=== PATIENT | female | born 1975 | race Caucasian/White ===

== ENCOUNTER 2018-03-13 15:47 | Outpatient (REF) | payer MEDICAID, SELFPAY ==
--- NOTE | 2018-03-13 15:15 | PAPFT_PTH ---
PATIENT: Christa Clifford [facility] U#:[id number] AGE/SX: 42/F ROOM: RE03/13/[address]: Rivka Jhaveri : 1975 BED: DIS: 03/13/2018 SPEC #: [id number] RECD: 03/14/18 12:51 STATUS: EROS MILLER #: [id number] CRISTIN: 03/13/18 15:[address]: Rivka Jhaveri DEPT: [facility] Cytology RECD BY: Latisha Mendoza Tissues: 1 - CX/ENDOCX FOR PAP SMEARS Procedures: PAP THIN PREP/UVM Screening HPV DNA PROBE Comments: [id number]
[2018-03-13 21:30] LABS: Abs Immature Grans 0.02 k/cumm (0.0-0.09); Absolute Basophil Count 0.02 k/cumm (0.0-0.2); Absolute Eosinophil Count 0.17 k/cumm (0.0-0.7); Absolute Lymphocyte Count 2.29 k/cumm (1.2-3.4); Absolute Neutrophil Count 6.21 k/cumm (1.2-6.7); Basophils % 0.2; Eosinophils % 1.8; HCT 36.9 % (36.0-46.0); HGB 11.9 g/dL (12.0-15.5); Immature Grans % 0.2; Lymphocytes % 24.6; Mean Corp. HGB Concentration 32.2 g/dL (32.0-36.0); Mean Corpuscular Hemoglobin 31.1 pg (27.0-33.0); Mean Corpuscular Volume 96.3 fL (80-95); Mean Platelet Volume 11.2 fL (8.0-11.0); Monocytes % 6.4; Neutrophils % 66.8; Platelet Count 337 x1000/uL (130-400); RBC 3.83 m/cumm (4.00-5.20); RBC Distribution Width 14.7 % (11.7-14.6); White Blood Cell Count 9.31 k/cumm (4.4-10.8)
[2018-03-13 22:01] LABS: Iron 39 ug/dL (50-175); Total Iron Binding Capacity 314 ug/dL (250-450); Transferrin Sat 12 % (15-50)
[2018-03-13 22:19] LABS: Cholesterol 196 mg/dL (50-200); Ferritin 12 ng/mL (8-388); Glucose 89 mg/dL (70-100); HDL Cholesterol 90 mg/dL (40-60); LDL CHOLESTEROL 81 mg/dL (<100); TSH (W/Ref FT4) 1.67 uIU/mL (0.358-3.74); Triglyceride 81 mg/dL (30-150)
== END 2018-03-13 16:07 ==
LOC: NCHCN 15:47
PROVIDERS: PCP Nurse Practitioner Family; Visit Provider Nurse Practitioner Family
DX: R53.83 Other fatigue (principal); K30 Functional dyspepsia; R91.1 Solitary pulmonary nodule; R10.2 Pelvic and perineal pain; N39.3 Stress incontinence (female) (male); E66.9 Obesity, unspecified; Z00.00 Encounter for general adult medical examination without abnormal findings; Z12.4 Encounter for screening for malignant neoplasm of cervix; Z11.51 Encounter for screening for human papillomavirus (HPV)
CPT/HCPCS: 80061; 82947; 83721; 88142; 82728; 83540; 83550; 84443; 85025; 87624

== ENCOUNTER 2018-03-19 01:41 | Outpatient (CLI) | payer MEDICAID, SELFPAY ==
--- NOTE | 2018-03-19 11:55 | DI.MAMMO_ITS ---
SYMPTOM/DIAGNOSIS: SCREENING, Z12.39, FAMILY H/O BREAST CA MAMMOGRAMS: Mammograms were interpreted according to the usual protocol including computer analysis with CAD system, tomosynthesis and C view imaging. Comparison is made with 2017. The breasts are composed of heterogeneously dense fibroglandular tissue, breast density, Category C. No suspicious masses or suspicious microcalcifications are seen. There has been no significant change. IMPRESSION: Category 1C, negative mammogram. Yearly screening mammography is recommended. [facility] ASSESSMENT OF FINDINGS: Negative. Category 1. Patient will receive a letter notifying them of these results. Bi-RADS category C. The breasts are heterogeneously dense, which may obscure small masses.
== END 2018-03-19 02:01 ==
PROVIDERS: PCP Nurse Practitioner Family; Visit Provider Nurse Practitioner Family
DX: Z12.31 Encounter for screening mammogram for malignant neoplasm of breast (principal); Z80.3 Family history of malignant neoplasm of breast
CPT/HCPCS: 77063; 77067

== ENCOUNTER 2018-06-08 09:12 | Outpatient (REF) | payer MEDICAID, SELFPAY ==
[2018-06-08 13:21] LABS: HCT 40.3 % (36.0-46.0); HGB 12.9 g/dL (12.0-15.5); Mean Corpuscular Hemoglobin 30.7 pg (27.0-33.0); Mean Platelet Volume 11.4 fL (8.0-11.0); Platelet Count 316 x1000/uL (130-400); RBC Distribution Width 14.4 % (11.7-14.6); White Blood Cell Count 8.25 k/cumm (4.4-10.8)
[2018-06-08 13:32] LABS: Iron 104 ug/dL (50-175)
== END 2018-06-08 09:32 ==
LOC: NCHCN 09:12
PROVIDERS: PCP Nurse Practitioner Family; Visit Provider Nurse Practitioner Family
DX: D50.9 Iron deficiency anemia, unspecified (principal)
CPT/HCPCS: 85027; 83540

== ENCOUNTER 2018-09-10 14:25 | Outpatient (REF) | payer MEDICAID, SELFPAY ==
[2018-09-10 21:50] LABS: Abs Immature Grans 0.02 k/cumm (0.0-0.09); Absolute Basophil Count 0.04 k/cumm (0.0-0.2); Absolute Eosinophil Count 0.05 k/cumm (0.0-0.7); Absolute Lymphocyte Count 1.95 k/cumm (1.2-3.4); Absolute Monocyte Count 0.47 k/cumm (0.11-0.7); Absolute Neutrophil Count 2.61 k/cumm (1.2-6.7); Basophils % 0.8; HGB 13.6 g/dL (12.0-15.5); Immature Grans % 0.4; Lymphocytes % 37.9; Mean Corp. HGB Concentration 33.2 g/dL (32.0-36.0); Mean Corpuscular Hemoglobin 30.7 pg (27.0-33.0); Mean Corpuscular Volume 92.6 fL (80-95); Mean Platelet Volume 11.5 fL (8.0-11.0); Monocytes % 9.1; Neutrophils % 50.8; Platelet Count 210 x1000/uL (130-400); RBC 4.43 m/cumm (4.00-5.20); RBC Distribution Width 14.7 % (11.7-14.6); White Blood Cell Count 5.14 k/cumm (4.4-10.8)
[2018-09-10 22:35] LABS: ALT 281 U/L (12-78); AST 200 U/L (15-37); Albumin 3.5 g/dL (3.4-5.0); Alkaline Phosphatase 535 U/L (46-116); Anion Gap 8.7 mmol/L (3-11); BUN 6 mg/dL (7-18); Bilirubin, Total 0.4 mg/dL (0.2-1.0); CO2 26.3 mmol/L (21.0-32.0); Calcium 8.4 mg/dL (8.5-10.1); Chloride 107 mmol/L (98-107); Glucose 103 mg/dL (70-100); Potassium 4.1 mmol/L (3.5-5.1); Sodium 142 mmol/L (136-145); TSH (W/Ref FT4) 2.16 uIU/mL (0.358-3.74); Total Protein 6.9 g/dL (6.4-8.2)
[2018-09-12 10:52] LABS: Hepatitis A Antibody IgM Negative (NEGAT); Hepatitis B Core Antibody Negative (NEGAT); Hepatitis B surface Ag Negative (NEGAT); Hepatitis C Ab w Rflx HCV PCR Negative (NEGAT)
[2018-09-12 12:25] LABS: Lyme Ab w Rflx to Lyme Confirm Negative
[2018-09-13 16:12] LABS: Anaplasma phagocytophilum Negative (Negative); B. miyamotoi PCR Negative (Negative); Babesia divergens/MO-1 Negative (Negative); Babesia duncani Negative (Negative); Babesia microti Negative (Negative); Ehrlichia chaffeensis Negative (Negative); Ehrlichia ewingii/canis Negative (Negative); Ehrlichia muris eauclairensis Negative (Negative)
== END 2018-09-10 14:45 ==
LOC: NCHCN 14:25
PROVIDERS: PCP Nurse Practitioner Family; Visit Provider Nurse Practitioner Family
DX: R50.9 Fever, unspecified (principal); R74.0 Nonspecific elevation of levels of transaminase and lactic acid dehydrogenase [LDH]; D72.819 Decreased white blood cell count, unspecified; R51 Headache; Z11.59 Encounter for screening for other viral diseases
CPT/HCPCS: 80053; 86704; 86709; 86803; 87340; 87798; 84443; 85025; 86618

== ENCOUNTER 2018-10-03 08:23 | Outpatient (REF) | payer MEDICAID, SELFPAY ==
[2018-10-03 12:35] LABS: Abs Immature Grans 0.02 k/cumm (0.0-0.09); Absolute Basophil Count 0.02 k/cumm (0.0-0.2); Absolute Eosinophil Count 0.14 k/cumm (0.0-0.7); Absolute Lymphocyte Count 2.82 k/cumm (1.2-3.4); Absolute Neutrophil Count 2.78 k/cumm (1.2-6.7); Basophils % 0.3; Eosinophils % 2.3; HCT 39.6 % (36.0-46.0); HGB 12.8 g/dL (12.0-15.5); Immature Grans % 0.3; Lymphocytes % 45.6; Mean Corp. HGB Concentration 32.3 g/dL (32.0-36.0); Mean Corpuscular Hemoglobin 30.5 pg (27.0-33.0); Mean Corpuscular Volume 94.5 fL (80-95); Mean Platelet Volume 11.7 fL (8.0-11.0); Monocytes % 6.5; Platelet Count 254 x1000/uL (130-400); RBC 4.19 m/cumm (4.00-5.20); RBC Distribution Width 15.3 % (11.7-14.6); White Blood Cell Count 6.18 k/cumm (4.4-10.8)
[2018-10-03 12:53] LABS: ALT 29 U/L (12-78); AST 14 U/L (15-37); Albumin 3.3 g/dL (3.4-5.0); Alkaline Phosphatase 97 U/L (46-116); Anion Gap 8.4 mmol/L (3-11); BUN 17 mg/dL (7-18); Bilirubin, Total 0.3 mg/dL (0.2-1.0); CO2 25.6 mmol/L (21.0-32.0); CREATININE 0.82 mg/dL (0.55-1.02); Calcium 8.7 mg/dL (8.5-10.1); Chloride 106 mmol/L (98-107); Glucose 90 mg/dL (70-100); Potassium 4.3 mmol/L (3.5-5.1); Sodium 140 mmol/L (136-145); Total Protein 6.7 g/dL (6.4-8.2)
== END 2018-10-03 08:43 ==
LOC: NCHCN 08:23
PROVIDERS: PCP Nurse Practitioner Family; Visit Provider Nurse Practitioner Family
DX: D72.819 Decreased white blood cell count, unspecified (principal); R51 Headache; R74.0 Nonspecific elevation of levels of transaminase and lactic acid dehydrogenase [LDH]
CPT/HCPCS: 80053; 85025

== ENCOUNTER 2019-03-11 17:23 | Outpatient (REF) | payer MEDICAID, SELFPAY ==
[2019-03-11 21:14] LABS: Abs Immature Grans 0.02 k/cumm (0.0-0.09); Absolute Basophil Count 0.03 k/cumm (0.0-0.2); Absolute Eosinophil Count 0.21 k/cumm (0.0-0.7); Absolute Lymphocyte Count 2.17 k/cumm (1.2-3.4); Absolute Monocyte Count 0.56 k/cumm (0.11-0.7); Absolute Neutrophil Count 4.49 k/cumm (1.2-6.7); Basophils % 0.4; Eosinophils % 2.8; HCT 37.6 % (36.0-46.0); Immature Grans % 0.3 %; Mean Corp. HGB Concentration 31.9 g/dL (32.0-36.0); Mean Corpuscular Hemoglobin 30.5 pg (27.0-33.0); Mean Corpuscular Volume 95.4 fL (80-95); Mean Platelet Volume 10.8 fL (8.0-11.0); Monocytes % 7.5; Platelet Count 396 x1000/uL (130-400); RBC 3.94 m/cumm (4.00-5.20); RBC Distribution Width 14.6 % (11.7-14.6); White Blood Cell Count 7.48 k/cumm (4.4-10.8)
[2019-03-11 21:29] LABS: Iron 41 ug/dL (50-170); Total Iron Binding Capacity 284 ug/dL (250-450); Transferrin Sat 14 % (15-50)
[2019-03-11 22:10] LABS: ALT 30 U/L (14-59); AST 20 U/L (15-37); Albumin 3.8 g/dL (3.4-5.0); Alkaline Phosphatase 99 U/L (46-116); Anion Gap 11.1 mmol/L (3-11); BUN 15 mg/dL (7-18); Bilirubin, Total 0.2 mg/dL (0.2-1.0); CO2 27.9 mmol/L (21.0-32.0); Calcium 8.9 mg/dL (8.5-10.1); Chloride 103 mmol/L (98-107); Glucose 91 mg/dL (74-106); Magnesium 1.9 mg/dL (1.8-2.4); Potassium 3.8 mmol/L (3.5-5.1); Sodium 142 mmol/L (136-145); TSH (W/Ref FT4) 3.05 uIU/mL (0.36-3.74); Total Protein 7.3 g/dL (6.4-8.2); Vitamin B12 335 pg/mL (193-986)
[2019-03-12 14:46] LABS: Hemoglobin A1C 5.6 % (3.8-5.6)
== END 2019-03-11 17:43 ==
LOC: NCHCN 17:23
PROVIDERS: PCP Nurse Practitioner Family; Visit Provider Nurse Practitioner Family
DX: R53.83 Other fatigue (principal); R63.5 Abnormal weight gain; R07.89 Other chest pain; M79.672 Pain in left foot
CPT/HCPCS: 80053; 82607; 83036; 83540; 83550; 83735; 84443; 85025

== ENCOUNTER 2019-09-13 08:17 | Outpatient (CLI) | payer MEDICAID, SELFPAY ==
[2019-09-19 19:12] LABS: SARS-CoV-2 RNA Undetected (Undetected); SARS-CoV-2 Specimen Source Nasopharynx
== END 2019-09-13 08:37 ==
PROVIDERS: PCP Nurse Practitioner Family; Visit Provider Nurse Practitioner Family
DX: Z20.828 Contact with and (suspected) exposure to other viral communicable diseases (principal)
CPT/HCPCS: U0003

== ENCOUNTER 2020-03-16 09:19 | Outpatient (CLI) | payer MEDICAID, SELFPAY ==
[2020-03-17 23:32] LABS: COVID-19 RT-PCR Result Positive (Negative)
== END 2020-03-16 09:39 ==
PROVIDERS: PCP Nurse Practitioner Family; Visit Provider Nurse Practitioner Family
DX: J06.9 Acute upper respiratory infection, unspecified (principal); Z20.822 Contact with and (suspected) exposure to COVID-19; R09.81 Nasal congestion
CPT/HCPCS: U0003

== ENCOUNTER 2020-07-16 01:21 | Outpatient (CLI) | payer MEDICAID, SELFPAY ==
--- NOTE | 2020-07-16 | DI.CT_ITS ---
Exam(s) CT CHEST WO EXAM: CT CHEST WO CLINICAL HISTORY: F/U PULMONARY NODULE, R91.1. TECHNIQUE: Multi planar reconstructions were performed. CONTRAST MATERIAL: None FINDINGS: CHEST: LUNGS: The previously described 4-5 millimeter ground-glass noncalcified nodule in the right upper lo be is unchanged from 2017 and therefore likely benign. There are no new focal right lung findings no r pleural effusion. Also no new significant findings in the left lung lower lobe. Mild benign-appea ring increased markings are noted in the inferior lingular segment of the left lung which were not ev ident 2017. No pleural effusions on either side. No significant focal findings in trachea and mainstem bronchi. MEDIASTINUM: There is no obvious hilar nor mediastinal adenopathy. Visualized thyroid unremarkable.No obvious axillary adenopathy CARDIAC: Heart size is normal. There is no pericardial effusion.Caliber of the thoracic aorta is wit hin normal limits. VISUALIZED UPPER ABDOMEN: There is a small cyst in the lateral aspect of the right hepatic lobe which measures 8 millimeters and is unchanged from 2017. No additional focal liver findings. Gallbladder is again noted be surgically absent. There are no adrenal masses. No splenomegaly. OSSEOUS: No significant osseous lesions.. IMPRESSION: 1. Continued stable appearance of the solitary 4-5 millimeter ground-glass nodule in the right upper lobe. This is unchanged from least 2017 and therefore likely benign. 2. Benign-appearing increased markings in the inferior lingular segment of the left lung are noted, n ot previously present. 3. No pleural effusions nor obvious intrathoracic adenopathy RADIATION DOSE DELIVERED: 686.4mGy.cm Total DLP DATA REPOSITORY: All CT scans at this facility are submitted to the National Radiology Data Registry (NRDR) Dose Index Registry (DIR) with the [employer] (ACR). RADIATION OPTIMIZATION: All CT scans at this facility use at least one of these dose optimization te chniques: automated exposure control; mA and/or kV adjustment per patient size (includes targeted exa ms where dose is matched to clinical indication); or iterative reconstruction.
--- NOTE | 2020-07-16 08:20 | DI.MAMMO_ITS ---
Exam(s) MAMMO SCREENING EXAM: MAMMO SCREENING CLINICAL HISTORY: SCREENING, Z12.39,FAMILY H/O BREAST CA,Z80.3. TECHNIQUE: Bilateral full field digital CC and MLO mammographic images were obtained with 3D tomosyn thesis and utilizing computer aided detection (CAD). COMPARISON: Prior mammograms dating back to 2016, the most recent being March 2018. FINDINGS: Fibroglandular tissue is moderately dense, this decreasing the sensitivity of the mammogram for findi ng in underlying lesions. There are no new spiculated masses nor malignant appearing microcalcification groups. Asymmetric densities posteriorly right breast up again suggest wall are unchanged. There is no significant architectural distortion nor skin thickening-retraction. IMPRESSION: Stable benign-appearing findings. No radiographic evidence of malignancy. BI-RADS Category 2 - Benign Findings Breast Density - Category C - Heterogeneously dense Breast density Category C or D implies that the patient has dense breast tissue. Dense breast tissue can make it harder to find cancer on a mammogram. Dense breast tissue is also associated with an incr eased risk of breast cancer. This information about the result of the mammogram report was provided to the patient to raise their awareness. Use this report when you speak with the patient about their risks for breast cancer, which includes their family history. At that time, you may recommend additional screening tests (Ultrasoun d or MRI) as these tests may add significant information. A negative radiographic report should not delay biopsy if a dominant or clinically suspicious mass is present. Up to ten percent of cancers are not identified on mammography. A negative report may reinforce clinical impression. Adenosis and dense breasts may obscure an underlying neoplasm. False positive reports average 6 to 10%. Patient will receive a letter notifying them of these results.
== END 2020-07-16 01:41 ==
PROVIDERS: PCP Nurse Practitioner Family; Visit Provider Nurse Practitioner Family
DX: Z12.31 Encounter for screening mammogram for malignant neoplasm of breast (principal); Z80.3 Family history of malignant neoplasm of breast; R91.1 Solitary pulmonary nodule; J98.4 Other disorders of lung
CPT/HCPCS: 71250; 77063; 77067

== ENCOUNTER 2020-07-28 16:50 | Outpatient (REF) | payer MEDICAID, SELFPAY ==
[2020-07-28 20:49] LABS: Iron 64 ug/dL (50-170); Total Iron Binding Capacity 303 ug/dL (250-450); Transferrin Sat 21 % (15-50)
[2020-07-28 20:50] LABS: Abs Immature Grans 0.02 10^3/uL (0.0-0.06); Absolute Basophil Count 0.03 10^3/uL (0.0-0.2); Absolute Monocyte Count 0.62 10^3/uL (0.1-0.8); Absolute Neutrophil Count 5.65 10^3/uL (1.2-6.7); Basophils % 0.4; Eosinophils % 1.2; HCT 34.8 % (36.0-46.0); HGB 12.4 g/dL (11.2-15.7); Immature Grans % 0.2; Lymphocytes % 23.8; MCH 34.6 pg (27.0-33.0); MCHC 35.6 % (32.0-36.0); MCV 97.2 fL (80-95); Monocytes % 7.4; Nucleated RBC 0 %; Platelet Count 239 10^3/uL (130-400); RBC 3.58 10^6/uL (3.93-5.22); RDW 17.1 % (11.7-14.6); RDW-SD 51.3 fL; WBC 8.42 10^3/uL (4.4-10.8)
[2020-07-28 21:09] LABS: Hemoglobin A1C 5.4 % (<5.7)
[2020-07-28 21:22] LABS: ALT 26 U/L (14-59); AST 18 U/L (15-37); Albumin 3.9 g/dL (3.4-5.0); Alkaline Phosphatase 100 U/L (46-116); Anion Gap 8.5 mmol/L (3-11); BUN 11 mg/dL (7-18); Bilirubin, Total 0.3 mg/dL (0.2-1.0); CO2 28.5 mmol/L (21.0-32.0); CREATININE 0.8 mg/dL (0.55-1.02); Chloride 105 mmol/L (98-107); Cholesterol 188 mg/dL (<200); Ferritin 21 ng/mL (8-252); Glucose 84 mg/dL (74-106); Potassium 4.3 mmol/L (3.5-5.1); Sodium 142 mmol/L (136-145); TSH (W/Ref FT4) 1.54 uIU/mL (0.36-3.74); Total Protein 7.6 g/dL (6.4-8.2); Triglyceride 72 mg/dL (<150); Vitamin B12 301 pg/mL (193-986)
[2020-07-28 21:34] LABS: Calculated LDL 107 mg/dL (<100); HDL Cholesterol 67 mg/dL (40-60)
[2020-07-28 21:48] LABS: Magnesium 2.1 mg/dL (1.8-2.4)
== END 2020-07-28 16:51 | disposition home or self-care (01) ==
LOC: NCHCN 16:50
PROVIDERS: PCP Nurse Practitioner Family; Visit Provider Nurse Practitioner Family
DX: R51.9 Headache, unspecified (principal); D50.9 Iron deficiency anemia, unspecified; R06.02 Shortness of breath; Z86.16 Personal history of COVID-19; R74.01 Elevation of levels of liver transaminase levels; G47.39 Other sleep apnea; Z13.1 Encounter for screening for diabetes mellitus
CPT/HCPCS: 80053; 80061; 82607; 82728; 83036; 83540; 83550; 83735; 84443; 85025

== ENCOUNTER 2021-06-22 14:14 | Outpatient (REF) | payer MEDICAID, SELFPAY ==
[2021-06-22 17:28] LABS: Abs Immature Grans 0.01 10^3/uL (0.0-0.06); Absolute Basophil Count 0.04 10^3/uL (0.0-0.2); Absolute Lymphocyte Count 1.91 10^3/uL (1.2-3.4); Absolute Neutrophil Count 4.86 10^3/uL (1.2-6.7); Basophils % 0.5; Eosinophils % 1.3; HCT 41.1 % (36.0-46.0); HGB 12.9 g/dL (11.2-15.7); Immature Grans % 0.1; Lymphocytes % 25.7; MCH 29.3 pg (27.0-33.0); MCHC 31.4 % (32.0-36.0); MCV 93.4 fL (80-95); MPV 11.5 fL (8.0-11.0); Monocytes % 6.7; Neutrophils % 65.7; Platelet Count 365 10^3/uL (130-400); RDW 14.8 % (11.7-14.6); RDW-SD 51.2 fL; WBC 7.42 10^3/uL (4.4-10.8)
[2021-06-22 18:26] LABS: Iron 93 ug/dL (50-170); Total Iron Binding Capacity 268 ug/dL (250-450); Transferrin Sat 35 % (15-50)
[2021-06-22 18:32] LABS: ALT 29 U/L (14-59); AST 15 U/L (15-37); Albumin 3.9 g/dL (3.4-5.0); Alkaline Phosphatase 114 U/L (46-116); BUN 14 mg/dL (7-18); Bilirubin, Total 0.4 mg/dL (0.2-1.0); CREATININE 0.8 mg/dL (0.55-1.02); Calcium 9.3 mg/dL (8.5-10.1); Chloride 106 mmol/L (98-107); Ferritin 25 ng/mL (8-252); Glucose 94 mg/dL (74-106); Potassium 4.8 mmol/L (3.5-5.1); Sodium 143 mmol/L (136-145); Total Protein 7.6 g/dL (6.4-8.2)
== END 2021-06-22 14:15 | disposition home or self-care (01) ==
LOC: NCHCN 14:14
PROVIDERS: PCP Nurse Practitioner Family; Visit Provider Nurse Practitioner Family
DX: D50.9 Iron deficiency anemia, unspecified (principal); R51.9 Headache, unspecified; R06.02 Shortness of breath; G47.33 Obstructive sleep apnea (adult) (pediatric)
CPT/HCPCS: 80053; 82728; 83540; 83550; 85025

== ENCOUNTER → 2021-08-03 01:48 | Outpatient (CLI) | payer MEDICAID, SELFPAY ==
--- NOTE | 2021-08-03 08:00 | DI.CT_ITS ---
Exam(s) CT CHEST WO EXAM: CT CHEST WO CLINICAL HISTORY: PULMONARY NODULE, R91.1. TECHNIQUE: Multi planar reconstructions were performed. CONTRAST MATERIAL: None COMPARISON: CT CT CHEST WO from 07/16/2020 FINDINGS: CHEST: LUNGS: The previously described 4-5 millimeter noncalcified nodule in the right upper lobe remains un changed (from 2017) and therefore most likely benign. There are no new significant focal right lung findings. Also no new significant focal left lung findings.. Previously described benign-appearing increased markings in the lingular segment of the left lung remains stable. There are no pleural eff usions on either side. MEDIASTINUM: There is no obvious hilar nor mediastinal adenopathy. Visualized thyroid unremarkable.No obvious axillary adenopathy CARDIAC: Heart size is normal. There is no pericardial effusion.Caliber of the thoracic aorta is wit hin normal limits. VISUALIZED UPPER ABDOMEN:No new significant adrenal masses. Gallbladder is again noted be surgically absent. No splenomegaly. Previously described small hypodensity in the peripheral right hepatic lo be is unchanged, either small cyst or hemangioma. OSSEOUS: No significant osseous lesions.. IMPRESSION: 1. There is continued stable appearance of the 4-5 millimeter previously described nodule in the righ t upper lobe. This is unchanged from 2017 and therefore most likely benign. 2. Benign-appearing increased markings in the lingular segment of the left lung are unchanged. 3. There are no pleural effusions nor obvious intrathoracic adenopathy. RADIATION DOSE DELIVERED: 724.09mGy.cm Total DLP DATA REPOSITORY: All CT scans at this facility are submitted to the National Radiology Data Registry (NRDR) Dose Index Registry (DIR) with the [employer] (ACR). RADIATION OPTIMIZATION: All CT scans at this facility use at least one of these dose optimization te chniques: automated exposure control; mA and/or kV adjustment per patient size (includes targeted exa ms where dose is matched to clinical indication); or iterative reconstruction.
--- NOTE | 2021-08-03 08:34 | DI.MAMMO_ITS ---
Exam(s) MAMMO SCREENING EXAM: MAMMO SCREENING CLINICAL HISTORY: SCREENING, Z12.39; FAMILY H/O BREAST CA, Z80.3. TECHNIQUE: Bilateral full field digital CC and MLO mammographic images were obtained with 3D tomosyn thesis and utilizing computer aided detection (CAD). COMPARISON: Prior mammograms were reviewed, the most recent being July 2020. FINDINGS: There are no new significant radiograph findings in left breast Asymmetric density posteriorly-medially in the right breast is again noted. Appears slightly more pr ominent than previous. There are no malignant-appearing microcalcification groups in this region or elsewhere in either [address]. There is no significant architectural distortion nor skin thickening-retraction. IMPRESSION: 1. No radiographic evidence of malignancy in left breast. 2. Asymmetric density posteriorly in the right breast appears slightly more prominent than previous. Recommend spot compression views and breast ultrasound. BI-RADS Category 0 - Assessment Incomplete: Need additional imaging evaluation Breast Density - Category C - Heterogeneously dense Breast density Category C or D implies that the patient has dense breast tissue. Dense breast tissue can make it harder to find cancer on a mammogram. Dense breast tissue is also associated with an incr eased risk of breast cancer. This information about the result of the mammogram report was provided to the patient to raise their awareness. Use this report when you speak with the patient about their risks for breast cancer, which includes their family history. At that time, you may recommend additional screening tests (Ultrasoun d or MRI) as these tests may add significant information. A negative radiographic report should not delay biopsy if a dominant or clinically suspicious mass is present. Up to ten percent of cancers are not identified on mammography. A negative report may reinforce clinical impression. Adenosis and dense breasts may obscure an underlying neoplasm. False positive reports average 6 to 10%. Patient will receive a letter notifying them of these results.
== END ==
PROVIDERS: PCP Nurse Practitioner Family; Visit Provider Nurse Practitioner Family
DX: Z12.31 Encounter for screening mammogram for malignant neoplasm of breast (principal); Z80.3 Family history of malignant neoplasm of breast; R92.8 Other abnormal and inconclusive findings on diagnostic imaging of breast; R91.1 Solitary pulmonary nodule; R91.8 Other nonspecific abnormal finding of lung field
CPT/HCPCS: 71250; 77063; 77067

== ENCOUNTER → 2021-08-09 02:39 | Outpatient (CLI) | payer MEDICAID, SELFPAY ==
--- NOTE | 2021-08-09 13:00 | DI.MAMMO_ITS ---
Exam(s) MAMMO SCREEN CALL BACK UNI EXAM: MAMMO SCREEN CALL BACK UNI CLINICAL HISTORY: F/U ABNL MAMMO, ASYMMETRIC DENSITY POSTERIORLY IN RT BREAST, MORE PROMINENT TECHNIQUE: Spot compression views and tomographic imaging were performed. COMPARISON: 2016, 2018 2020 FINDINGS: No suspicious masses or suspicious microcalcifications are seen. No significant change in the asymmetric breast tissue in the posterior right breast.. IMPRESSION: BI-RADS Category 1, Negative Yearly screening mammography is recommended. Breast Density - Category B, scattered fibroglandular densities.
== END ==
PROVIDERS: PCP Nurse Practitioner Family; Visit Provider Nurse Practitioner Family
DX: Z12.31 Encounter for screening mammogram for malignant neoplasm of breast (principal); R92.8 Other abnormal and inconclusive findings on diagnostic imaging of breast; N64.59 Other signs and symptoms in breast
CPT/HCPCS: 77063; 77067

== ENCOUNTER 2021-08-20 01:11 | Outpatient (CLI) | payer MEDICAID, SELFPAY | END 2021-08-20 01:12 | disposition home or self-care (01) | LOC: LBO 01:11 | PROVIDERS: PCP Nurse Practitioner Family; Visit Provider Surgery ==

== ENCOUNTER 2021-09-07 02:57 | Outpatient (CLI) | payer MEDICAID, SELFPAY | END 2021-09-07 02:58 | disposition home or self-care (01) | PROVIDERS: PCP Nurse Practitioner Family; Visit Provider Surgery ==

== ENCOUNTER 2024-04-29 17:56 | Outpatient (REF) | payer MEDICAID, SELFPAY | END 2024-04-29 17:57 | disposition home or self-care (01) | LOC: LBN 17:56 | PROVIDERS: PCP Nurse Practitioner Family; Visit Provider Nurse Practitioner Family | DX: B95.4 Other streptococcus as the cause of diseases classified elsewhere (principal); J02.9 Acute pharyngitis, unspecified | CPT/HCPCS: 87077; 87070 ==

== ENCOUNTER 2024-07-18 08:22 | Outpatient (REF) | payer MEDICAID, SELFPAY ==
--- NOTE | 2024-07-18 07:45 | PAPFT_PTH ---
PATIENT: Christa Clifford LOC: [facility]#:[id number] AGE/SX: 48/F ROOM: RE07/18/[address]: Rivka Jhaveri : 1975 BED: DIS: 07/18/2024 SPEC #: [id number] RECD: 07/18/24 17:47 STATUS: EROS REDenver #: [id number] CRISTIN: 07/18/24 07:[address]: Rivka Jhaveri DEPT: [facility] Cytology RECD BY: Latisha Mendoza Tissues: 1 - CX/ENDOCX FOR PAP SMEARS Procedures: PAP THIN PREP/UVM Screening HPV DNA PROBE Comments: [id number] (HPV 16 & 18/45)
== END 2024-07-18 08:23 | disposition home or self-care (01) ==
LOC: NCHCN 08:22
PROVIDERS: PCP Nurse Practitioner Family; Visit Provider Nurse Practitioner Family
DX: Z12.4 Encounter for screening for malignant neoplasm of cervix (principal)
CPT/HCPCS: 88142; 87624

== ENCOUNTER 2024-08-21 02:27 | Outpatient (CLI) | payer MEDICAID, SELFPAY ==
--- NOTE | 2024-08-21 | DI.CT_ITS ---
Exam(s) CT CHEST WO EXAM: CT CHEST WO CLINICAL HISTORY: Solitary pulmonary nodule, R91.1. TECHNIQUE: Imaging protocol: Axial computed tomography images were obtained and coronal and sagittal reformatted images were created and reviewed. Lung Computer Aided Detection (CAD) was utilized. CT CT CHEST WO from 08/03/2021 FINDINGS: Tracheobronchial tree: Patent where visualized. No bronchiectasis is present. Pulmonary parenchyma: No consolidation or dominant measurable mass. The 4-5 mm ground-glass nodule in the right upper lobe is unchanged. No new pulmonary nodules are present. Mediastinum and Cinthia: No dominant adenopathy or fluid collection. The esophagus is unremarkable. Thyroid gland: Unremarkable. Pleura: No effusion or pneumothorax. Heart: The heart is not dilated. No coronary artery calcifications are seen. No pericardial effusion. Aorta: Thoracic aorta non-dilated. Minimal atherosclerotic calcification is present. Upper abdomen: There is a stable tiny hypodensity in the right lobe of the liver. This may represent a small cyst or hemangioma. Lymph nodes: Within normal limits. Soft tissues: Unremarkable. Bones:Within normal limits for the patient's age. IMPRESSION: 1. Stable right upper lobe ground-glass nodule. 2. No new pulmonary nodules. No acute pulmonary infiltrates. RADIATION DOSE DELIVERED: 209.27mGy.cm Total DLP 209.27mGy.cm Total DLP DATA REPOSITORY: All CT scans at this facility are submitted to the National Radiology Data Registry (NRDR) Dose Index Registry (DIR) with the [employer] (ACR). RADIATION OPTIMIZATION: All CT scans at this facility use at least one of these dose optimization techniques: automated exposure control; mA and/or kV adjustment per patient size (includes targeted exams where dose is matched to clinical indication); or iterative reconstruction.
--- NOTE | 2024-08-21 | DI.MAMMO_ITS ---
Exam(s) MAMMO SCREENING EXAM: MAMMO SCREENING CLINICAL HISTORY: Screening, Z12.31; family h/o breast cancer TECHNIQUE: Bilateral full field digital CC and MLO mammographic images were obtained with 3D tomosynthesis and utilizing computer aided detection (CAD). COMPARISON: Comparison is made with prior examinations. FINDINGS: Masses/Architectural Distortion: No suspicious masses or areas of architectural distortion are present. Microcalcifications: No suspicious pleomorphic-type are seen. Skin Thickening/Nipple Retraction: None. IMPRESSION: 1. No significant interval change with no specific features of malignancy noted. 2. Unless there is more urgent need, screening mammography is recommended, as per [employer] guidelines. BI-RADS Category 1 - Negative Breast Density - Category C - The breast are heterogeneously dense, which may obscure small masses. Breast density Category C or D implies that the patient has dense breast tissue. Dense breast tissue can make it harder to find cancer on a mammogram. Dense breast tissue is also associated with an increased risk of breast cancer. This information about the result of the mammogram report was provided to the patient to raise their awareness. Use this report when you speak with the patient about their risks for breast cancer, which includes their family history. At that time, you may recommend additional screening tests (Ultrasound or MRI) as these tests may add significant information. A negative radiographic report should not delay biopsy if a dominant or clinically suspicious mass is present. Up to ten percent of cancers are not identified on mammography. A negative report may reinforce clinical impression. Adenosis and dense breasts may obscure an underlying neoplasm. False positive reports average 6 to 10%. Patient will receive a letter notifying them of these results.
--- NOTE | 2024-08-21 07:30 | DI.US_ITS ---
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 Ejection fraction is 55 to 60%. Wall motion is normal Normal right ventricular size and function Both atria are normal in size There is no structural or hemodynamically significant valvular disease Wall motion Left Ventricle Left ventricle is mildly dilated. The left ventricular systolic function is normal. The left ventricular ejection fraction is within the normal range. There is normal left ventricular wall thickness. There is normal LV segmental wall motion. There is no ventricular septal defect visualized. LVEF is 58%. Right Ventricle The right ventricle is normal size. The right ventricular systolic function is normal. Atria The left atrium size is normal. The right atrium size is normal. The interatrial septum is intact with no evidence for an atrial septal defect. Aortic Valve The aortic valve is normal in structure. Aortic valve is trileaflet. There is no aortic valvular stenosis. No aortic regurgitation is present. Mitral Valve The mitral valve is normal in structure. No evidence of mitral valve stenosis. Trace mitral regurgitation. Tricuspid Valve The tricuspid valve is normal in structure. There is no tricuspid valve stenosis. Trace tricuspid regurgitation. The RVSP is 22.8_ mmHg. Pulmonic Valve The pulmonary valve is normal in structure. There is no pulmonic valvular stenosis. There is no pulmonic valvular regurgitation. Great Vessels The aortic root is normal in size. The ascending aorta is normal in size. Aortic arch is normal in caliber. IVC is normal in size and collapses >50% with inspiration. Pericardium There is no pericardial effusion. 2D Dimensions IVSD d PLAX 0.70 cm F: 0.6-1.0 Ao Root d 2.72 cm F: 2.7 - 3.3 LVPW d PLAX 0.71 cm F: 0.6 - 1.0 Ao Asc Diam d 3.11 cm F: 2.3 - 3.1 LVID d PLAX 5.61 cm F: 3.8 - 5.2 LVDs 3.85 cm F: 2.2 - 3.5 LV EF Teichholz 58.7 % FS 31.43 % LV EDV (Teich) 154.6 mL LV ESV (Teich) 63.9 mL M-Mode TAPSE 2.58 cm (M/F) >1.7 Auto EF LV EDV A4C 136.6 mL LV EDV A2C 142.5 mL LV EDV BP 139.8 mL LV ESV A4C 58.5 mL LV ESV A2C 59.1 mL LV ESV BP 59.0 mL LVEF(%) A4C 57.1 % LVEF(%) A2C 58.5 % LVEF(%) BP 57.8 % LV SV A4C 78.0 ml LV SV A2C 83.3 ml LV SV BP 80.8 ml LV CO A4C 3.9 L/min LV CO A2C 4.1 L/min LV CO BP 4.0 L/min HR A4C 49.44 BPM HR A2C 49.12 BPM LV EDV Index (BP) LA Volume LA Length A4C 5.7 cm LA Length A2C 5.4 cm LA Area A4C s 21.12 cm2 LA Area A2C s 17.43 cm2 LA Vol A4C A-L 66.46 mL LA Vol A2C A-L 47.93 mL LA Vol Biplane A-L 58.1 mL LA Vol/BSA A4C A-L LA Vol/BSA A2C A-L LA Vol/BSA BP A-L 28.5 mL/m2 LA Vol A4C MOD 60.9 mL LA Vol A2C MOD 45.3 mL LA Vol BP MOD 53.7 mL RA Volume RA Area A4C 13.8 cm2 RA ESV A4C (A-L) 35.9mL RA Vol/BSA A4C A-L RA Length A4C 4.5 cm RA ESV A4C (MOD) 35.5mL LV Diastology MV E' medial 0.082 (>0.07 m/s) MV E Vmax 0.97 (0.4-1.3 m/s) MV E/E' MED 11.81 (<14) MV A Vmax 0.65 (0.4-1.3 m/s) MV E' lateral 0.123 (>0.1 m/s) E/A Ratio 1.5 MV E/E' LAT 7.87 (<14) MV E' Average 0.103 m/s MV E/E'(average) 9.45 Aortic Valve AoV Vmax 1.96 m/s LVOT Vmax 1.22 m/s AoV Peak Grad 15.4 mmHg LVOT Peak Grad 6.0 mmHg AoV Area (Vmax) 1.69 cm2 LVOT VTI 0.334 m AoV VTI 0.531 m LVOT Mean Grad 3.8 mmHg AoV Mean Jonny. 1.35 m/s LVOT SV 90.37 mL AoV Mean Grad 8.5 mmHg LVOT Diam s 1.85 cm AoV Area (VTI) 1.70 cm2 AV Regurg Peak Gr. 15.40 mmHg Velocity Ratio 0.62 Mitral Valve MV DT 213 (160-240 msec) MV Vmax TIPS 0.96 m/s MV Mean Grad 1.0 (<2mmHg) MV VTI 0.385 m Pulmonary Valve PV Vmax 1.11 (0.5-1.5 m/s) RVOT Vmax 0.69 m/s PV Peak Grad 5.0 mmHg RVOT Peak Gr. 1.9 mmHg PV Mean Jonny 0.71 m/s RVOT VTI 0.224 m PV Mean Grad 2.3 mmHg RVOT Mean Gr. 1.3 mmHg Tricuspid Valve RA Pressure 3.00 mmHg TR Vmax 2.23 m/s TV S' 0.14 m/s TR Peak Grad 19.8 mmHg RVSP (TR) 22.8 mmHg
== END 2024-08-21 02:47 ==
LOC: DI 02:27
PROVIDERS: PCP Nurse Practitioner Family; Visit Provider Nurse Practitioner Family
DX: R01.1 Cardiac murmur, unspecified (principal); R91.1 Solitary pulmonary nodule; Z12.31 Encounter for screening mammogram for malignant neoplasm of breast; Z80.3 Family history of malignant neoplasm of breast
CPT/HCPCS: 71250; 77063; 77067; 93306

== ENCOUNTER 2025-01-15 01:26 | Outpatient (CLI) | payer MEDICAID, SELFPAY ==
--- NOTE | 2025-01-15 10:00 | W.NUTRFU ---
Date of service: 01/15/25 Time of Service: 09:00 Nutrition Note NOTE: 49 yr old pt
--- NOTE | 2025-01-15 10:10 | TELEFU_ITS ---
Date of service: 01/15/25 Time of Service: 09:00 Nutrition Note NOTE: Provided nutrition counseling to pt in person. 49 yr old female pt who presents with desire for wt loss. Per provider note, she has tried different diets in the past: carnivore diet, atkins diet, weight and wellness program, Otoniel [place] Diet, Acanthamide diet, Katherine Timmy, protein shakes, and Wt Watchers, but has not been able to sustain wt loss. Her heaviest wt over the past 5 years was 267 pounds, current wt is 238 lbs, and was last in the 180s in 2014. Pt reports that she is currently on the Carnivore Diet and has been on it for a year now. Has lost some wt since beginning this diet, but now her wt is c urrently at a standstill. Typically consumes hard boiled eggs, steak, venison, and other animal protein. Occasionally has vegetables, but says it'll add wt onto her if she eats any kind of fruit/veg, which we discussed could potentially be water wt and not fat gain. 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 Doesn't typically consume snacks. Says her wt goal is to be about 165- 175 lbs. Reviewed with her the importance of eating a balanced diet that includes fruit, nonstarchy vegetables, protein, fiber, and fats and how she can gradually start adding those foods back into her diet. 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 Is on a Mg supplement. We spoke about measuring out the amount of maple syrup she is putting into her coffee and potentially reducing that amount, importance of strength training to build muscle. Recommended limiting added sugars to 25g, which she is most likely exceeding that value with maple syrup, and getting at least 25g of fiber. Recommend she gets blood work done so we can look at her lipids panel and c- reactive proteins values as pt has been on carnivore diet for a yr to see if there's been any influence to her labs. Pt states it would be helpful have a sample menu to refer to and follow. Will send pt an email with a sample menu resources with calorie, fiber, and added sugar goals. Pt is aware she can contact the dietitian if she has any questions or would like to schedule a follow-up appt. Time Spent in Nutritional Counseling and Treatment: 30 mins
== END 2025-01-15 01:27 | disposition home or self-care (01) ==
LOC: DS 01:28
PROVIDERS: PCP Nurse Practitioner Family; Visit Provider Dietitian, Registered
DX: E66.9 Obesity, unspecified (principal)
CPT/HCPCS: 00123; 97802